=== PATIENT | male | born 1950 | race Caucasian/White ===

== ENCOUNTER 2016-12-03 20:42 | Emergency (ER) | payer OTHER ==
[~2016-12-03] VITALS: Ht 172.7 cm; Wt 93.9 kg
[~2016-12-03 20:42] MED LIST: ASPCH81X PO; ATOR-22 PO; GABA800T2 PO; MULTCHW PO; OMEP40CA PO; OXYC-106 PO; PSEU120T10 PO; SYN75 PO; [UNRECOGNIZED DRUG - CODE] PO
[2016-12-03 20:53] VITALS: BP 146/89; TEMP 36.7; Ht 172.7 cm; Wt 93.9 kg
--- NOTE | 2016-12-03 21:24 | DIAGNOSTIC IMAGING REPORT ---
RIGHT HAND MIN 3 VIEWS ROUTINE CLINICAL HISTORY: trauma to hand (second third fingers) Right trauma COMPARISON: None. DISCUSSION: Generalized degenerative change. Mild soft tissue edema. No well-defined acute bony abnormality. Alignment is anatomic. IMPRESSION: Generalized degenerative change. Mild soft tissue edema. No acute bony abnormality. Electronically signed by: Rohan Catalan M.D. 12/03/2016 9:22 PM
[2016-12-03] MEDS ORDERED: OXYCODONE HCL IR 5 MG TAB (IMMEDIATE RELEASE) PO STA (21:55)
--- NOTE | 2016-12-03 22:04 | EMERGENCY ROOM VISIT NOTE ---
ED Visit Note First contact with patient: 21:02 Chief Complaint: Fell Hurt RIGHT Hand History of Present Illness: Patient is a 66-year-old male who presents to the emergency department for evaluation of his RIGHT hand pain. He reports that he was ambulated up the concrete steps after walking his dog when he tripped on a step and caught himself on his extended RIGHT hand. He reports that the step split his RIGHT second and third digit. He denies any dizziness, lightheadedness, chest pain, shortness of breath prior to the fall. He has had intense pain to the hand, specifically between the RIGHT second and third digits. He denies any numbness or tingling into his legs. He reports a moderate amount of swelling with increasing pain. He is tried nothing for his pain immediately after the injury. He rates his current discomfort as an 8/10. The patient reports being on several pain medications for chronic pain issues. He is tried [id number] medications. Medications: Reviewed and discussed with the patient. Allergies: Clindamycin, penicillins PMH: No pertinent past medical history. SHx: Patient is a 66-year-old male who lives locally. ROS: All pertinent positive and negative review of systems are appropriately documented in the History of Present Illness. Physical Exam: VITAL SIGNS - Vital signs and nursing notes were reviewed. GENERAL - 66-year-old male appearing his stated age and in noticeable discomfort throughout the exam. MUSCULOSKELETAL - moderate edema noted to the RIGHT second and third digit. There is tenderness to palpation to the MCP joints of the RIGHT second and third digits as well. Decreased range of motion secondary to pain and swelling. No step-off deformities noted. No point tenderness over the anatomic snuffbox. No tenderness to palpation extending into the wrist, forearm , or elbow.s. NEUROLOGIC - SENSORY: Spinothalamic tract was found to be intact with ability to discriminate sharp versus dull sensation at the level of the RIGHT elbow down to the fingertips. No sensory deficits of the dorsal column were appreciated utilizing light touch for evaluation. VASCULAR - Capillary refill was brisk. +3/5 radial pulse palpated. IMAGING: RIGHT HAND MIN 3 VIEWS ROUTINE CLINICAL HISTORY: trauma to hand (second third fingers) Right trauma COMPARISON: None. DISCUSSION: Generalized degenerative change. Mild soft tissue edema. No well-defined acute bony abnormality. Alignment is anatomic. IMPRESSION: Generalized degenerative change. Mild soft tissue edema. No acute bony abnormality. ED Course: Patient was seen and evaluated by myself. Patient was provided an ice pack for comfort. I had a lengthy discussion with the patient regarding his pain management. The patient takes heavy doses of pain medication at home. He drove the emergency department. I explained to him that I would not be providing him anything stronger for pain for home as he is already receiving more medication for pain and I will be willing to provide in this setting. X- ray of the affected hand was obtained and found to be unremarkable. The patient was provided a finger splint for comfort. He was provided 2, 5 mg OxyIR tabs to be taken upon returning home. He was encouraged to continue his pain medication regime as previously prescribed. He was educated on worrisome symptoms for return visit to the emergency department. Patient discharged home in good condition. In the evaluation and treatment of this patient, the following differential diagnoses were considered: Finger Fracture, Finger Dislocation, Finger Sprain, Finger Contusion, Jersey Finger, or Mallet Finger. Impression: RIGHT Hand Contusion, Mechanical Fall Discharge Instructions: You have been seen in the emergency department today for your RIGHT hand contusion. Please wear the splint for comfort for the next week. Ice and elevate the area for comfort. For pain control, you can use the following [id number] medicines (if >12 yo): - Regular strength (325mg/tab) Tylenol (acetaminophen) 2 tabs every 4-6 hours as needed. Do not exceed 12 tablets in a 24 hour period. Avoid taking more than 4 grams (4000 mg) of Tylenol per day. This includes any other sources of acetaminophen you may take on a regular basis. - Regular strength (200 mg/tab) Advil (ibuprofen) 1-2 tabs every 4-6 hours as needed. Do not exceed a dose of 3200 mg per day. Continue your prescribed narcotic medication for pain as needed. Return for any changing or worsening symptoms. Problem List Medical Problems: (1) Bronchitis Status: Resolved (2) Emphysema/COPD Status: Chronic (3) Heart disease Status: Resolved (4) Pneumonia Status: Resolved Surgical Problems: (1) H/O laminectomy Status: Resolved Current/Historical Medications Unable to Obtain Active Prescriptions or Reported Meds Allergies Coded Allergies: Clindamycin (Unverified Allergy, Unknown, ANAPHYLAXIS, 02/14/16) Penicillins (Unverified Allergy, Unknown, ANAPHYLAXIS, 02/14/16) Vital Signs Date Time Temp Pulse Resp B/P Pulse Ox O2 Delivery O2 Flow Rate FiO2 12/03/16 22:18 92 20 96 Room Air 12/03/16 20:53 36.7 84 20 146/89 96 Room Air Medications Administered Medications (Trade) Dose Ordered Sig/[place] Route Start Time Stop Time Status Last Admin Dose Admin Oxycodone HCl (Roxicodone Immediate Rel Tab) 10 mg NOW STAT PO 12/03/16 21:55 12/03/16 21:56 DC 12/03/16 22:14 10 MG Departure Information Impression Primary Impression: Hand contusion Additional Impression: Fall Dispostion Home / Self-Care Condition GOOD Prescriptions Unable to Obtain Active Prescriptions or Reported Meds Referrals Eldon Hatch M.D. (PCP) Patient Instructions A Signature Page, My [facility] Additional Instructions You have been seen in the emergency department today for your RIGHT hand contusion. Please wear the splint for comfort for the next week. Ice and elevate the area for comfort. For pain control, you can use the following bnej-sen-vivsopk medicines (if >12 yo): - Regular strength (325mg/tab) Tylenol (acetaminophen) 2 tabs every 4-6 hours as needed. Do not exceed 12 tablets in a 24 hour period. Avoid taking more than 4 grams (4000 mg) of Tylenol per day. This includes any other sources of acetaminophen you may take on a regular basis. - Regular strength (200 mg/tab) Advil (ibuprofen) 1-2 tabs every 4-6 hours as needed. Do not exceed a dose of 3200 mg per day. Continue your prescribed narcotic medication for pain as needed. Return for any changing or worsening symptoms.
[2016-12-03 22:18] VITALS: PULSE 92; O2SAT 96
== END 2016-12-03 22:18 | disposition home or self-care (01) ==
LOC: C.EDB 20:44 → C.EDD 22:18
DX: S60.221A Contusion of right hand, initial encounter (principal); G89.29 Other chronic pain; J44.9 Chronic obstructive pulmonary disease, unspecified; W18.43XA Slipping, tripping and stumbling without falling due to stepping from one level to another, initial encounter; Y93.01 Activity, walking, marching and hiking; Y92.89 Other specified places as the place of occurrence of the external cause; Y99.8 Other external cause status

== ENCOUNTER → 2018-01-13 | Outpatient (CLI) | payer OTHER ==
--- NOTE | 2018-01-13 14:34 | DIAGNOSTIC IMAGING REPORT ---
LEFT LOWER EXTREMITY VENOUS DOPPLER HISTORY: Left calf pain. COMPARISON STUDY: None. FINDINGS: There is normal compressibility, flow, and augmentation within the left lower extremity deep venous system. IMPRESSION: No DVT within the left lower extremity. Electronically signed by: Deep Carrillo M.D. 01/13/2018 2:32 PM Dictated Date/Time: 01/13/2018 2:32 PM
== END | disposition home or self-care (01) ==
LOC: C.ULTR 13:28
PROVIDERS: ATTEND Physician Assistant Medical
DX: M25.462 Effusion, left knee (principal)